=== PATIENT | female | born 2000 | race Caucasian/White ===

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

== ENCOUNTER 2018-04-29 14:44 | Emergency (ER) | payer OTHER ==
[2018-04-29 14:55] VITALS: BP 118/80; PULSE 86; RESP 16; TEMP 97.7
[2018-04-29 15:24] LABS: Appearance,Urine Cloudy (Clear); Bacteria,Urine Many /hpf; Bilirubin,Urine Negative (Negative); Blood,Urine Negative (Negative); Color,Urine Light Yellow; Glucose,Urine (UA) Trace (Negative); Ketones,Urine Negative (Negative); Leukocyte Esterase,Urine Small (Negative); Mucus,Urine Rare /hpf; Nitrite,Urine Negative (Negative); PH, Urine 6.5 (5.0-8.0); Protein,Urine Negative (Negative); RBC,Urine 3 /hpf (0-5); Specific Gravity,Urine 1.006 (1.001-1.035); Squamous Epithelial Cell,Urine 2 /hpf (0-4); Urobilinogen,Urine <2.0 mg/dL (<2.0)
--- NOTE | 2018-04-29 15:45 | ED ---
Female Urogenital HPI - General Chief complaint: Urogenital Stated complaint: UTI Time Seen by Provider: 04/29/18 15:09 Source: patient, RN notes reviewed, old records reviewed Mode of arrival: ambulatory Limitations: no limitations - History of Present Illness Initial comments: Pt is a 18 year old female currently 18 weeks and concern for UTI. She denies vaginal bleeding abdominal pain or discharge. She reports that she has had a foul urine odor. She sees Dr. Rashid. - Related Data Previous Rx's Medication Instructions Recorded Amoxicillin/Potassium Clav 1 tab PO Q12HR #20 tab 08/09/17 [Augmentin 875-125 Tablet] Amoxicillin 875 mg PO Q8HR #21 tablet 10/17/17 Fluconazole [Diflucan] 150 mg PO DAILY #2 tab 10/17/17 Cephalexin [Keflex] 500 mg PO BID #14 cap 04/29/18 Fluconazole [Diflucan] 150 mg PO ONCE #2 tab 04/29/18 Allergies Allergy/AdvReac Type Severity Reaction Status Date / Time No Known Allergies Allergy Verified 04/29/18 14:55 Review of Systems ROS Statement: Those systems with pertinent positive or pertinent negative responses have been documented in the HPI. ROS Other: All systems not noted in ROS Statement are negative. Past Medical History Past Medical History: No Reported History History of Any Multi-Drug Resistant Organisms: None Reported Past Surgical History: No Surgical Hx Reported Past Psychological History: No Psychological Hx Reported Smoking Status: Current every day smoker Past Alcohol Use History: Occasional Past Drug Use History: Marijuana General Exam - General Exam Comments Initial Comments: Well appearing 18 year old female, no distress. Limitations: no limitations General appearance: alert, in no apparent distress Head exam: Present: atraumatic, normocephalic, normal inspection Eye exam: Present: normal appearance, PERRL, EOMI. Absent: scleral icterus, conjunctival injection, periorbital swelling ENT exam: Present: normal exam, mucous membranes moist Neck exam: Present: normal inspection. Absent: tenderness, meningismus, lymphadenopathy Respiratory exam: Present: normal lung sounds bilaterally. Absent: respiratory distress, wheezes, rales, rhonchi, stridor Cardiovascular Exam: Present: regular rate, normal rhythm, normal heart sounds. Absent: systolic murmur, diastolic murmur, rubs, gallop, clicks GI/Abdominal exam: Present: soft, normal bowel sounds. Absent: distended, tenderness, guarding, rebound, rigid Extremities exam: Present: normal inspection, full ROM, normal capillary refill. Absent: tenderness, pedal edema, joint swelling, calf tenderness Back exam: Present: normal inspection Neurological exam: Present: alert, oriented X3, CN II-XII intact Psychiatric exam: Present: normal affect, normal mood Course Vital Signs 04/29/18 14:52 Temperature 97.7 F Pulse Rate 86 Respiratory 16 Rate Blood Pressure 118/80 O2 Sat by Pulse 99 Oximetry Medical Decision Making - Medical Decision Making 18 year old 18 week pregnatn female is concerned for UTI. No abomdinal pain, vaginal bleeding or discharge. She appears well. UA shows bacteria, will treat with keflex and she requests Rx for diflucan. Discussed close PCP follow up. Culture pending. - Lab Data Lab Results 04/29/18 Range/Units 15:00 Urine Color Light Yellow Urine Appearance Cloudy H (Clear) Urine pH 6.5 (5.0-8.0) Ur Specific [place] 1.006 (1.001-1.035) Urine Protein Negative (Negative) Urine Glucose (UA) Trace H (Negative) Urine Ketones Negative (Negative) Urine Blood Negative (Negative) Urine Nitrite Negative (Negative) Urine Bilirubin Negative (Negative) Urine Urobilinogen <2.0 (<2.0) mg/dL Ur Leukocyte Esterase Small H (Negative) Urine RBC 3 (0-5) /hpf Urine WBC 8 H (0-5) /hpf Ur Squamous Epith Cells 2 (0-4) /hpf Urine Bacteria Many H (None) /hpf Urine Mucus Rare H (None) /hpf Disposition Clinical Impression: UTI in Disposition: HOME SELF-CARE Condition: Good Instructions (If sedation given, give patient instructions): Urinary Tract Infection in Women (ED) Additional Instructions: Patient advised to follow up with OBGYN. Return to ED if any alarming signs or symptoms occur. Prescriptions: Cephalexin [Keflex] 500 mg PO BID #14 cap Fluconazole [Diflucan] 150 mg PO ONCE #2 tab Is patient prescribed a controlled substance at d/c from ED?: No Referrals: None,Stated [Primary Care Provider] - 1-2 days Time of Disposition: 15:42
== END 2018-04-29 15:50 | disposition home or self-care (01) ==
LOC: EC 14:44
DX: O23.42 Unspecified infection of urinary tract in pregnancy, second trimester (principal); O99.332 Smoking (tobacco) complicating pregnancy, second trimester; F17.200 Nicotine dependence, unspecified, uncomplicated; Z3A.18 18 weeks gestation of pregnancy
CPT/HCPCS: 81001; 87086; 99284

== ENCOUNTER 2018-08-03 15:08 | Outpatient (CLI) | payer OTHER ==
[2018-08-03] MEDS ORDERED: ACETAMINOPHEN TAB 325 MG TAB PO STA (15:57)
[2018-08-03 16:12] VITALS: BP 122/59; PULSE 90; RESP 18; TEMP 98.5
[2018-08-03 16:36] LABS: Appearance,Urine Clear (Clear); Bacteria,Urine Rare /hpf; Bilirubin,Urine Negative (Negative); Blood,Urine Negative (Negative); Color,Urine Yellow; Glucose,Urine (UA) Negative (Negative); Ketones,Urine Negative (Negative); Leukocyte Esterase,Urine Trace (Negative); Mucus,Urine Few /hpf; Nitrite,Urine Negative (Negative); Protein,Urine Trace (Negative); RBC,Urine 1 /hpf (0-5); Specific Gravity,Urine 1.024 (1.001-1.035); Squamous Epithelial Cell,Urine 1 /hpf (0-4); Urobilinogen,Urine <2.0 mg/dL (<2.0); WBC,Urine 2 /hpf (0-5)
--- NOTE | 2018-08-04 10:18 | P.MSEPDOC ---
Presenting Problems - Arrival Data Date of Arrival on Unit: 08/03/18 Time of Arrival on Unit: 15:20 Mode of Transport: Ambulatory - Complaint OB-Reason for Admission/Chief Complaint: Other Comment: ligament pains Medical History - Information : 1 Para: 0 Term: 0 : 0 Abortions: Spontaneous or Elective: 0 Number of Living Children: 0 - Gestational Age Gestational Age by RONALD (wks/days): 31 Weeks and 5 Days Review of Systems - Review of Systems Constitutional: No problems Breast: No problems ENT: No problems Cardiovascular: No problems Respiratory: No problems Gastrointestinal: No problems Genitourinary: No problems Musculoskeletal: No problems Neurological: No problems Skin: No problems Vital Signs - Temperature Temperature: 98.5 F Temperature Source: Oral - Pulse Right Brachial Pulse Rate: 90 Pulse Assessment Method: Auscultation - Respirations Respiratory Rate: 18 Oxygen Delivery Method: Room Air O2 Sat by Pulse Oximetry: 98 - Blood Pressure Right Arm Blood Pressure: 122/59 Blood Pressure Mean: 80 Blood Pressure Source: Automatic Cuff Medical Screen Scoring (Pre) - Cervical Exam Dilation: Exam Deferred Effacement: Exam Deferred Membranes: Intact - Uterine Contractions Frequency: N/A Duration: N/A Intensity: N/A - Maternal Vital Signs Maternal Temperature: N/A Maternal Blood Pressure: N/A Signs of Preeclampsia: N/A Maternal Respirations: N/A - Pain Assessment Pain Scale Used: Numeric (1 - 10) Pain Intensity: 0 Pain Behavior: None Exhibited - Maternal Trauma Maternal Trauma: N/A - Assessment Baseline FHR: 140 Heart Rate - NICHD Category: Category I (Normal) = 0 NST: Reactive Position: N/A Station: N/A - Total Score Total Score (Pre): 0 - Level of Risk Level of Risk: Low (0-5) Physician Notification (Pre) - Physician Notified Spoke With: chantale Stein Order Received: Yes - Notification Comment Comment: discharge home. to keep next cayden appt as scheduled. Physician Notification (Post) - Physician Notified Physician Notified Date: 08/03/18 Physician Notified Time: 17:20 Spoke With: chantale Stein Order Received: Yes - Notification Comment Comment: discharge home. maddie wnl. keep next sched appt with dr rodarte. Disposition - Disposition OB Disposition: Discharge to home Discharge Date: 08/03/18 Discharge Time: 17:28 I agree with the RN Medical Screening Exam: Yes Risk & Benefit of care provided described in d/c instruction: Yes Diagnosis: RELATED CONDITIONS, UNSPECIFIED, THIRD TRIMESTER
== END 2018-08-03 17:30 | disposition home or self-care (01) ==
LOC: FBPOP 15:08
PROVIDERS: ATTEND Obstetrics & Gynecology
DX: O26.93 Pregnancy related conditions, unspecified, third trimester (principal); Z3A.31 31 weeks gestation of pregnancy
CPT/HCPCS: 59025; 81001; G0463; 99213

== ENCOUNTER 2018-08-21 15:59 | Outpatient (CLI) | payer OTHER ==
[2018-08-21 18:06] VITALS: BP 111/65; PULSE 88; RESP 18; TEMP 98
--- NOTE | 2018-08-30 09:46 | P.MSEPDOC ---
Presenting Problems - Arrival Data Date of Arrival on Unit: 08/21/18 Time of Arrival on Unit: 16:20 Mode of Transport: Ambulatory - Complaint OB-Reason for Admission/Chief Complaint: Rule Out SROM Comment: C/O WATERY DISCHARGE ONSET 1400 TODAY Medical History - Information : 1 Para: 0 Number of Living Children: 0 - Gestational Age Gestational Age by RONALD (wks/days): 34 Weeks and 2 Days Review of Systems - Review of Systems Constitutional: No problems Breast: No problems ENT: No problems Cardiovascular: No problems Respiratory: No problems Gastrointestinal: No problems Genitourinary: No problems Musculoskeletal: No problems Neurological: No problems Skin: No problems Vital Signs - Temperature Temperature: 98.0 F Temperature Source: Oral - Pulse Right Brachial Pulse Rate: 88 Pulse Assessment Method: Auscultation - Respirations Respiratory Rate: 18 Oxygen Delivery Method: Room Air O2 Sat by Pulse Oximetry: 99 - Blood Pressure Right Arm Blood Pressure: 111/65 Blood Pressure Mean: 80 Blood Pressure Source: Automatic Cuff Medical Screen Scoring (Pre) - Cervical Exam Dilation: 0 cm = 0 Membranes: Intact - Uterine Contractions Frequency: N/A Duration: N/A Intensity: N/A - Maternal Vital Signs Maternal Temperature: N/A Signs of Preeclampsia: N/A Maternal Respirations: N/A - Maternal Trauma Maternal Trauma: N/A - Assessment - Baby A Baseline FHR: 135 Heart Rate - NICHD Category: Category I (Normal) = 0 NST: Reactive Position: N/A Station: N/A - Total Score - Baby A Total Score - Baby A: 0 - Total Score - Baby B Total Score - Baby B: 0 - Total Score - Baby C Total Score - Baby C: 0 - Level of Risk - Baby A Level of Risk - Baby A: Low (0-5) - Level of Risk - Baby B Level of Risk - Baby B: Low (0-5) - Level of Risk - Baby C Level of Risk - Baby C: Low (0-5) Physician Notification (Pre) - Physician Notified Spoke With: RORY New Order Received: Yes - Notification Comment Comment: DISCHARGED HOME. TO KEEP NET SCHED APPT WITH DR BENDER Disposition - Disposition OB Disposition: Discharge to home Discharge Date: 08/21/18 Discharge Time: 16:50 I agree with the RN Medical Screening Exam: Yes Risk & Benefit of care provided described in d/c instruction: Yes Diagnosis: FALSE LABOR BEFORE 37 COMPLETED WEEKS OF GEST, THIRD TRI
== END 2018-08-21 16:50 | disposition home or self-care (01) ==
LOC: FBPOP 15:59
PROVIDERS: ATTEND Obstetrics & Gynecology
DX: O47.03 False labor before 37 completed weeks of gestation, third trimester (principal); Z3A.34 34 weeks gestation of pregnancy
CPT/HCPCS: 59025; G0463; 99213

== ENCOUNTER 2018-09-08 21:00 | Outpatient (CLI) | payer OTHER ==
[2018-09-08 22:16] VITALS: BP 113/57; PULSE 88; RESP 18; TEMP 97.5
--- NOTE | 2018-09-09 09:26 | P.MSEPDOC ---
Presenting Problems - Arrival Data Date of Arrival on Unit: 09/08/18 Time of Arrival on Unit: 21:00 Mode of Transport: Ambulatory - Complaint OB-Reason for Admission/Chief Complaint: Pain Comment: Constant upper abd pain spreading down to lower abd. Medical History - Information : 1 Para: 0 Term: 0 : 0 Abortions: Spontaneous or Elective: 0 Number of Living Children: 0 - Gestational Age Gestational Age by RONALD (wks/days): 36 Weeks and 6 Days - History Complications: No Care Review of Systems - Review of Systems Constitutional: No problems Breast: No problems ENT: No problems Cardiovascular: No problems Respiratory: No problems Gastrointestinal: No problems Genitourinary: No problems Musculoskeletal: No problems Neurological: No problems Skin: No problems Vital Signs - Temperature Temperature: 97.5 F Temperature Source: Oral - Pulse Right Pulse Rate: 88 Pulse Assessment Method: Pulse Oximetry - Respirations Respiratory Rate: 18 Oxygen Delivery Method: Room Air O2 Sat by Pulse Oximetry: 98 - Blood Pressure Right Arm Blood Pressure: 113/57 Blood Pressure Mean: 75 Blood Pressure Source: Automatic Cuff Medical Screen Scoring (Pre) - Cervical Exam Dilation: 1-3 cm = 1 Effacement: Exam Deferred Membranes: Intact - Uterine Contractions Frequency: N/A Duration: N/A Intensity: N/A - Maternal Vital Signs Maternal Temperature: N/A Maternal Blood Pressure: N/A Signs of Preeclampsia: N/A Maternal Respirations: N/A - Maternal Trauma Maternal Trauma: N/A - Assessment - Baby A Baseline FHR: 130 Heart Rate - NICHD Category: Category I (Normal) = 0 NST: Reactive Position: N/A Station: N/A - Total Score - Baby A Total Score - Baby A: 1 - Total Score - Baby B Total Score - Baby B: 1 - Total Score - Baby C Total Score - Baby C: 1 - Level of Risk - Baby A Level of Risk - Baby A: Low (0-5) - Level of Risk - Baby B Level of Risk - Baby B: Low (0-5) - Level of Risk - Baby C Level of Risk - Baby C: Low (0-5) Physician Notification (Pre) - Physician Notified Physician Notified Date: 09/08/18 Physician Notified Time: 21:42 Physician/Practitioner Notifed:: Dr. Sandhu Spoke With: Dr. Sandhu New Order Received: Yes (discharge with follow up instructions.) Medical Screen Scoring (Post) - Cervical Exam Dilation: 1-3 cm = 1 Effacement: Exam Deferred Membranes: Intact - Uterine Contractions Frequency: N/A Duration: N/A Intensity: N/A - Maternal Vital Signs Maternal Temperature: N/A Maternal Blood Pressure: N/A Signs of Preeclampsia: N/A Maternal Respirations: N/A - Pain Assessment Pain Location and Character: Upper, Lower, Abdomen Pain Scale Used: Numeric (1 - 10) Pain Intensity: 1 Pain Management Goal: 0 Pain Description: *Acute, Cramping Pain Frequency: Occasional Pain Duration Units: Minutes Pain Behavior: Vocalization Pain Aggravating Factors: Activity, Position Non-Pharmacological Interventions: Darkened Room, Distraction, Environmental Control, Inactivity, Position/Reposition, Relaxation Technique - Maternal Trauma Maternal Trauma: N/A - Assessment - Baby A Heart Rate: 125 Heart Rate - NICHD Category: Category I (Normal) = 0 NST: Reactive Position: N/A Station: N/A - Total Score Total Score - Baby A: 1 Total Score - Baby B: 1 Total Score - Baby C: 1 - Post Treatment Level of Risk Post Treatment Level of Risk - Baby A: Low (0-5) Post Treatment Level of Risk - Baby B: Low (0-5) Post Treatment Level of Risk - Baby C: Low (0-5) Physician Notification (Post) - Physician Notified Physician Notified Date: 09/08/18 Physician Notified Time: 21:42 Physician/Practitioner Notified:: Dr. Sandhu Spoke With: Dr. Sandhu New Order Received: Yes (discharge with follow up instructions) Disposition - Disposition OB Disposition: Discharge to home Discharge Date: 09/08/18 Discharge Time: 21:42 I agree with the RN Medical Screening Exam: Yes Risk & Benefit of care provided described in d/c instruction: Yes Diagnosis: FALSE LABOR BEFORE 37 COMPLETED WEEKS OF GEST, THIRD TRI
== END 2018-09-08 21:48 | disposition home or self-care (01) ==
LOC: FBPOP 21:00
PROVIDERS: ATTEND Obstetrics & Gynecology
DX: O47.03 False labor before 37 completed weeks of gestation, third trimester (principal); Z3A.36 36 weeks gestation of pregnancy
CPT/HCPCS: 59025; G0463; 99213

== ENCOUNTER 2018-09-17 13:30 | Outpatient (CLI) | payer OTHER ==
[2018-09-17 15:42] VITALS: BP 133/59; PULSE 88; RESP 16; TEMP 96.6
--- NOTE | 2018-09-19 08:12 | P.MSEPDOC ---
Presenting Problems - Arrival Data Date of Arrival on Unit: 09/17/18 Time of Arrival on Unit: 13:30 Mode of Transport: Ambulatory - Complaint OB-Reason for Admission/Chief Complaint: Observation/Evaluation Comment: pt complains of SOB with activity Medical History - Information : 1 Para: 0 Term: 0 : 0 Abortions: Spontaneous or Elective: 0 Number of Living Children: 0 - Gestational Age Gestational Age by RONALD (wks/days): 39 Weeks and 3 Days Review of Systems - Review of Systems Constitutional: No problems Breast: No problems ENT: No problems Cardiovascular: No problems Respiratory: No problems Gastrointestinal: No problems Genitourinary: No problems Musculoskeletal: No problems Neurological: No problems Skin: No problems Comment: pt no longer short of breath when resting Vital Signs - Temperature Temperature: 96.6 F Temperature Source: Temporal Artery Scan - Pulse Right Brachial Pulse Rate: 88 Pulse Assessment Method: Automatic Cuff - Respirations Respiratory Rate: 16 Oxygen Delivery Method: Room Air O2 Sat by Pulse Oximetry: 99 - Blood Pressure Right Arm Blood Pressure: 133/59 Blood Pressure Mean: 83 Blood Pressure Source: Automatic Cuff Medical Screen Scoring (Pre) - Cervical Exam Dilation: Exam Deferred Effacement: Exam Deferred Membranes: Intact - Uterine Contractions Frequency: N/A Duration: N/A Intensity: N/A - Maternal Vital Signs Maternal Temperature: N/A Maternal Blood Pressure: N/A Signs of Preeclampsia: N/A Maternal Respirations: N/A - Maternal Trauma Maternal Trauma: N/A - Assessment - Baby A Baseline FHR: 140 Heart Rate - NICHD Category: Category I (Normal) = 0 NST: Reactive Position: N/A Station: N/A - Total Score - Baby A Total Score - Baby A: 0 - Total Score - Baby B Total Score - Baby B: 0 - Total Score - Baby C Total Score - Baby C: 0 - Level of Risk - Baby A Level of Risk - Baby A: Low (0-5) - Level of Risk - Baby B Level of Risk - Baby B: Low (0-5) - Level of Risk - Baby C Level of Risk - Baby C: Low (0-5) Medical Screen Scoring (Post) - Post Treatment Level of Risk Post Treatment Level of Risk - Baby A: Low (0-5) Physician Notification (Post) - Physician Notified Physician Notified Date: 09/17/18 Physician Notified Time: 14:17 Spoke With: Rachid Stein Order Received: Yes - Notification Comment Comment: no longer short of breath, vitals including pulse ox wnl. d/c with instruction Disposition - Disposition OB Disposition: Discharge to home, Written follow up instructions reviewed Discharge Date: 09/17/18 Discharge Time: 14:25 I agree with the RN Medical Screening Exam: Yes Risk & Benefit of care provided described in d/c instruction: Yes Diagnosis: SHORTNESS OF BREATH
== END 2018-09-17 14:25 | disposition home or self-care (01) ==
LOC: FBPOP 13:30
PROVIDERS: ATTEND Obstetrics & Gynecology
DX: O99.89 Other specified diseases and conditions complicating pregnancy, childbirth and the puerperium (principal); R06.02 Shortness of breath; Z3A.39 39 weeks gestation of pregnancy
CPT/HCPCS: 59025; G0463; 99213

== ENCOUNTER → 2018-09-22 | Outpatient (CLI) | payer OTHER ==
[2018-09-22 12:25] VITALS: BP 109/59; PULSE 83; RESP 16; TEMP 98.2
--- NOTE | 2018-09-25 12:40 | P.MSEPDOC ---
Presenting Problems - Arrival Data Date of Arrival on Unit: 09/22/18 Time of Arrival on Unit: 11:47 Mode of Transport: Ambulatory - Complaint OB-Reason for Admission/Chief Complaint: Decreased Movement Comment: last felt 1000 this morning, moving less than normal Medical History - Information : 1 Para: 0 Term: 0 : 0 Abortions: Spontaneous or Elective: 0 Number of Living Children: 0 - Gestational Age Gestational Age by RONALD (wks/days): 38 Weeks and 6 Days Review of Systems - Review of Systems Constitutional: No problems Breast: No problems ENT: No problems Cardiovascular: No problems Respiratory: No problems Gastrointestinal: No problems Genitourinary: No problems Musculoskeletal: No problems Neurological: No problems Skin: No problems Vital Signs - Temperature Temperature: 98.2 F Temperature Source: Oral - Pulse Right Sitting Brachial Pulse Rate: 83 Pulse Assessment Method: Automatic Cuff - Respirations Respiratory Rate: 16 Oxygen Delivery Method: Room Air - Blood Pressure Right Arm Sitting Blood Pressure: 109/59 Blood Pressure Mean: 75 Blood Pressure Source: Automatic Cuff Medical Screen Scoring (Pre) - Cervical Exam Dilation: Exam Deferred Effacement: Exam Deferred Membranes: Intact - Uterine Contractions Frequency: > 5 minutes apart = 1 Duration: > 40 seconds = 2 Intensity: N/A - Maternal Vital Signs Maternal Temperature: N/A Maternal Blood Pressure: N/A Signs of Preeclampsia: N/A Maternal Respirations: N/A - Maternal Trauma Maternal Trauma: N/A - Assessment - Baby A Baseline FHR: 140 Heart Rate - NICHD Category: Category I (Normal) = 0 NST: Reactive Position: N/A Station: N/A - Total Score - Baby A Total Score - Baby A: 3 - Total Score - Baby B Total Score - Baby B: 3 - Total Score - Baby C Total Score - Baby C: 3 - Level of Risk - Baby A Level of Risk - Baby A: Low (0-5) - Level of Risk - Baby B Level of Risk - Baby B: Low (0-5) - Level of Risk - Baby C Level of Risk - Baby C: Low (0-5) Medical Screen Scoring (Post) - Assessment - Baby A Heart Rate: 140 Heart Rate - NICHD Category: Category I (Normal) = 0 NST: Reactive Position: N/A Station: N/A - Total Score Total Score - Baby A: 0 - Post Treatment Level of Risk Post Treatment Level of Risk - Baby A: Low (0-5) Physician Notification (Post) - Physician Notified Physician Notified Date: 09/22/18 Physician Notified Time: 12:46 Spoke With: Rachid Stein Order Received: Yes - Notification Comment Comment: movement felt, reactive fhts Disposition - Disposition OB Disposition: Discharge to home, Written follow up instructions reviewed Discharge Date: 09/22/18 Discharge Time: 12:55 I agree with the RN Medical Screening Exam: Yes Risk & Benefit of care provided described in d/c instruction: Yes Diagnosis: DECREASED MOVEMENTS, THIRD TRIMESTER, FETUS 1
== END | disposition home or self-care (01) ==
LOC: FBPOP 11:47
PROVIDERS: ATTEND Obstetrics & Gynecology
DX: O36.8131 Decreased fetal movements, third trimester, fetus 1 (principal); Z3A.38 38 weeks gestation of pregnancy
CPT/HCPCS: 59025; G0463; 99213

== ENCOUNTER 2018-09-24 18:24 | Outpatient (CLI) | payer OTHER ==
[2018-09-24 20:05] VITALS: BP 120/57; PULSE 88; RESP 16; TEMP 95.7
--- NOTE | 2018-10-06 10:03 | P.MSEPDOC ---
Presenting Problems - Arrival Data Date of Arrival on Unit: 09/24/18 Time of Arrival on Unit: 18:24 Mode of Transport: Wheelchair - Complaint OB-Reason for Admission/Chief Complaint: Possible Onset of Labor Comment: SHarp abdominal pain since 1729, rates as 6/10 Medical History - Information : 1 Para: 0 Term: 0 : 0 Abortions: Spontaneous or Elective: 0 Number of Living Children: 0 - Gestational Age Gestational Age by RONALD (wks/days): 39 Weeks and 1 Days Review of Systems - Review of Systems Constitutional: No problems Breast: No problems ENT: No problems Cardiovascular: No problems Respiratory: No problems Gastrointestinal: No problems Genitourinary: No problems Musculoskeletal: No problems Neurological: No problems Skin: No problems Vital Signs - Temperature Temperature: 95.7 F Temperature Source: Temporal Artery Scan - Pulse Right Brachial Pulse Rate: 88 Pulse Assessment Method: Automatic Cuff - Respirations Respiratory Rate: 16 Oxygen Delivery Method: Room Air - Blood Pressure Right Arm Blood Pressure: 120/57 Blood Pressure Mean: 78 Blood Pressure Source: Automatic Cuff Medical Screen Scoring (Pre) - Cervical Exam Dilation: 1-3 cm = 1 Effacement: More than 50% = 2 Membranes: Intact - Uterine Contractions Frequency: > or = 36 weeks =2 Duration: > 40 seconds = 2 Intensity: N/A - Maternal Vital Signs Maternal Temperature: N/A Maternal Blood Pressure: N/A Signs of Preeclampsia: N/A Maternal Respirations: N/A - Maternal Trauma Maternal Trauma: N/A - Assessment - Baby A Baseline FHR: 140 Heart Rate - NICHD Category: Category I (Normal) = 0 NST: Reactive Position: N/A Station: N/A - Total Score - Baby A Total Score - Baby A: 7 - Total Score - Baby B Total Score - Baby B: 7 - Total Score - Baby C Total Score - Baby C: 7 - Level of Risk - Baby A Level of Risk - Baby A: Medium (6-9) - Level of Risk - Baby B Level of Risk - Baby B: Medium (6-9) - Level of Risk - Baby C Level of Risk - Baby C: Medium (6-9) Physician Notification (Pre) - Physician Notified Physician Notified Date: 09/24/18 Physician Notified Time: 19:48 Spoke With: Phoebe Stein Order Received: Yes - Notification Comment Comment: D/c home and follow up with Dr. Rashid as planned 09/26 Disposition - Disposition OB Disposition: Discharge to home, Written follow up instructions reviewed Discharge Date: 09/24/18 Discharge Time: 19:51 I agree with the RN Medical Screening Exam: Yes Risk & Benefit of care provided described in d/c instruction: Yes Diagnosis: FALSE LABOR AT OR AFTER 37 COMPLETED WEEKS OF GESTATION
== END 2018-09-24 19:51 | disposition home or self-care (01) ==
LOC: FBPOP 18:24
PROVIDERS: ATTEND Obstetrics & Gynecology
DX: O47.1 False labor at or after 37 completed weeks of gestation (principal); Z3A.39 39 weeks gestation of pregnancy
CPT/HCPCS: 59025; G0463; 99213

== ENCOUNTER 2018-09-25 00:15 | Inpatient (IN) | payer OTHER ==
[2018-09-25] MEDS ORDERED: LIDOCAINE 0.5% (PF) 5 MG/ML (50 ML SDV) SQ PRN (00:34)
[2018-09-25] MEDS ORDERED: OXYTOCIN 10 UNIT/ML 1 ML VIAL IM PRN (00:34)
[2018-09-25] MEDS ORDERED: TERBUTALINE 1 MG/ML VIAL SQ PRN (00:34)
[2018-09-25] MEDS ORDERED: METHYLERGONOVINE 0.2 MG/ML 1 ML AMP IM PRN (00:34)
[2018-09-25] MEDS ORDERED: AMPICILLIN 2,000 MG in SODIUM CHLORIDE 0.9% 100 ML IVPB STA (00:34)
[2018-09-25] MEDS ORDERED: CARBOPROST TROMETHAMINE 250 MCG/ML 1 ML AMP IM PRN (00:34)
[2018-09-25] MEDS ORDERED: BUTORPHANOL 1 MG/ML 1 ML VIAL IV PRN (00:36)
[2018-09-25 00:43] VITALS: BMI 44.1
[2018-09-25] MEDS ORDERED: OXYTOCIN 30 UNITS/500 ML NS 30 UNIT in SALINE 1 500ML.BAG IV SCH (00:45)
[2018-09-25] MEDS ORDERED: LACTATED RINGERS 1,000 ML IV SCH (00:45)
[2018-09-25] MEDS: LACTATED RINGERS 1,000 ML IV SCH ×3 (00:59→17:25)
[2018-09-25 01:05] LABS: Basophils % (A) 0 %; Eosinophils # (A) 0.2 k/uL (0-0.7); Eosinophils % (A) 2 %; HGB 11.6 gm/dL (11.4-16.0); Hypochromasia Slight; Lymphocytes # (A) 1.6 k/uL (1.0-4.8); Lymphocytes % (A) 16 %; MCH 26.7 pg (25.0-35.0); MCHC 33.2 g/dL (31.0-37.0); MCV 80.4 fL (80.0-100.0); Mean Platelet Volume 8.1; Monocytes # (A) 0.6 k/uL (0-1.0); Monocytes % (A) 5 %; Neutrophils # (A) 7.6 k/uL (1.3-7.7); Neutrophils % (A) 75 %; Platelet Count 297 k/uL (150-450); RBC 4.36 m/uL (3.80-5.40); RDW 14.7 % (11.5-15.5); WBC 10.1 k/uL (4.0-11.0)
[2018-09-25] MEDS: AMPICILLIN 1,000 MG in SODIUM CHLORIDE 0.9% 50 ML IVPB SCH ×4 (04:55→17:25)
[2018-09-25] MEDS ORDERED: SODIUM CHLORIDE 0.9% 100 ML BAG ONE (09:15)
[2018-09-25] MEDS ORDERED: fentaNYL (PF) 50 MCG/ML 5 ML AMP ONE (09:15)
[2018-09-25] MEDS ORDERED: ROPIVACAINE 5MG/ML 20ML VIAL ONE (09:15)
[2018-09-25] MEDS ORDERED: ACETAMINOPHEN TAB 325 MG TAB PO PRN (17:36)
[2018-09-25] MEDS ORDERED: HYDROCORTISONE 2.5% RECTAL CREAM 30 GM TUBE RECTAL PRN (17:36)
[2018-09-25] MEDS ORDERED: WITCH HAZEL 1 EACH MED..PAD TOPICAL PRN (17:36)
[2018-09-25] MEDS ORDERED: SIMETHICONE 80 MG CHEWABLE PO PRN (17:36)
[2018-09-25] MEDS ORDERED: ZOLPIDEM 5 MG TAB PO PRN (17:36)
[2018-09-25] MEDS ORDERED: BENZOCAINE/MENTHOL SPRAY 1 GM/SPRAY AEROSOL TOPICAL PRN (17:36)
[2018-09-25] MEDS ORDERED: diphenhydrAMINE 25 MG CAP PO PRN (17:36)
[2018-09-25] MEDS ORDERED: diphenhydrAMINE 50 MG CAP PO PRN (17:36)
[2018-09-25] MEDS ORDERED: LANOLIN CREAM 5 GM TUBE TOPICAL PRN (17:36)
[2018-09-25] MEDS ORDERED: diphenhydrAMINE 50 MG/ML 1 ML VIAL IVP PRN ×2 (17:36)
[2018-09-25] MEDS ORDERED: OXYTOCIN 20 UNITS/1000 ML NS 1,000 ML IV SCH (17:45)
[2018-09-25] MEDS: IBUPROFEN 600 MG TAB PO PRN (17:53)
[2018-09-25] MEDS: SENNOSIDES-DOCUSATE SODIUM 1 EACH TAB PO SCH (23:41)
[2018-09-26] MEDS: IBUPROFEN 600 MG TAB PO PRN ×3 (01:43→22:40)
[2018-09-26] MEDS: SENNOSIDES-DOCUSATE SODIUM 1 EACH TAB PO SCH ×2 (08:13→21:38)
[2018-09-27 01:04] VITALS: RESP 16
[2018-09-27] MEDS: IBUPROFEN 600 MG TAB PO PRN ×3 (04:21→15:38)
[2018-09-27] MEDS: SENNOSIDES-DOCUSATE SODIUM 1 EACH TAB PO SCH (08:14)
--- NOTE | 2018-09-27 09:35 | P.HPOB ---
History of Present Illness H&P Date: 09/25/18 Chief Complaint: Spontaneous rupture membranes 18-year-old presents at 39 weeks and 2 days with spontaneous rupture of membranes. When she presented she was about 2 cm dilated, 70% effaced, -2 station. She is marissa irregularly and heart tones 130s with mo derate variability and accelerations. Review of Systems All systems: negative Constitutional: Denies chills, Denies fever Eyes: denies blurred vision, denies pain Ears, nose, mouth and throat: Denies headache, Denies sore throat Cardiovascular: Denies chest pain, Denies shortness of breath Respiratory: Denies cough Gastrointestinal: Denies abdominal pain, Denies diarrhea, Denies nausea, Denies vomiting Genitourinary: Denies dysuria, Denies hematuria Musculoskeletal: Denies myalgias Integumentary: Denies pruritus, Denies rash Neurological: Denies numbness, Denies weakness Psychiatric: Denies anxiety, Denies depression Endocrine: Denies fatigue, Denies weight change Past Medical History Past Medical History: No Reported History Additional Past Medical History / Comment(s): Obstetric history: This is her first . She's had care with me since first trimester. Blood type is B+, antibodies negative, rubella immune, hep is B-, GBS positive. History of Any Multi-Drug Resistant Organisms: None Reported Past Surgical History: No Surgical Hx Reported Past Anesthesia/Blood Transfusion Reactions: No Reported Reaction Past Psychological History: No Psychological Hx Reported Smoking Status: Former smoker Past Alcohol Use History: Occasional Past Drug Use History: Marijuana Additional Drug Use History / Comment(s): quit with - Past Family History Mother Family Medical History: No Reported History Medications and Allergies Home Medications Medication Instructions Recorded Confirmed Type Pnv,Calcium 72/Iron/Folic Acid 1 each PO DAILY 08/03/18 09/24/18 History [ Plus Tablet] Ibuprofen [Motrin] 600 mg PO Q6HR PRN #30 tab 09/27/18 Rx Allergies Allergy/AdvReac Type Severity Reaction Status Date / Time No Known Allergies Allergy Verified 09/24/18 18:35 Exam Osteopathic Statement: *. No significant issues noted on an osteopathic structural exam other than those noted in the History and Physical/Consult. Vital Signs Temp Pulse Resp BP 09/27/18 08:00 97.9 F 89 16 106/60 09/27/18 00:00 98.3 F 68 16 118/68 09/26/18 16:00 98.3 F 80 14 119/69 Intake and Output 09/26/18 09/27/18 09/27/18 22:59 06:59 14:59 Other: # Voids 2 2 2 Heart: Regular rate and rhythm Lungs: Clear to auscultation bilaterally Abdomen: Soft, nontender Extremities: Negative Homans sign Results Result Diagrams: 09/25/18 00:54 Assessment and Plan (1) Spontaneous rupture of membranes Current Visit: Yes Status: Acute Code(s): SPT7975 - SNOMED Code(s): 139005023 Plan: 1. Admitted to [facility] by Dr. Sandhu 2. Ampicillin for GBS prophylaxis. 3. Pitocin augmentation if necessary 4. Anticipate normal vaginal delivery
--- NOTE | 2018-09-27 09:37 | P.PROBDLV ---
Vaginal Delivery Note - . Vaginal Delivery Note: 18-year-old presented at 39 weeks and 2 days with spontaneous rupture of membranes. She ruptured on 09/24/2018 at 2345. She presented on 09/25 about 2 cm dilated 70% effaced and -2 station. She's marissa irregularly. heart tones 130s with moderate variability and accelerations. Ampicillin was started for GBS prophylaxis. Around 6 AM Pitocin augmentation was also started. When she was uncomfortable she did get an epidural. Her cervix was completely dilated at 1517. She pushed, delivered a viable male infant over intact perineum under epidural anesthesia at 1657. Head delivered OA, nuchal cord 1 easily reduced, anterior shoulder delivered gentle downward guidance followed by posterior shoulder and rest of body. Nose and mouth bulb suctioned, cord clamped and cut, placed mother's abdomen. Apgars 3 at 1 minute, 6 at 5 minutes, 8 at 10 minutes. Weight 7 lbs. 6 oz. Placenta delivered spontaneously, intact with three-vessel cord at 1658. Vagina, cervix, and perineum were inspected. Second-degree midline laceration was repaired with 3-0 Vicryl. Estimated blood loss 200 mL.
[2018-09-27 16:37] VITALS: BP 102/60; PULSE 75; TEMP 98.1
== END 2018-09-27 18:45 | disposition home or self-care (01) | DRG 807 ==
LOC: FBPOP 00:15 → 4FBP 00:29
PROVIDERS: ADMIT Obstetrics & Gynecology; ATTEND Obstetrics & Gynecology
PROC: 10E0XZZ Delivery of Products of Conception, External Approach (ICD-10-PCS; principal; 2018-09-25)
PROC: 0KQM0ZZ Repair Perineum Muscle, Open Approach (ICD-10-PCS; 2018-09-25)
PROC: 00HU33Z Insertion of Infusion Device into Spinal Canal, Percutaneous Approach (ICD-10-PCS; 2018-09-25)
PROC: 3E0R3BZ Introduction of Anesthetic Agent into Spinal Canal, Percutaneous Approach (ICD-10-PCS; 2018-09-25)
DX: O99.824 Streptococcus B carrier state complicating childbirth (principal); Z37.0 Single live birth; O69.81X0 Labor and delivery complicated by cord around neck, without compression, not applicable or unspecified; O70.1 Second degree perineal laceration during delivery; Z3A.39 39 weeks gestation of pregnancy; Z87.891 Personal history of nicotine dependence; Z79.899 Other long term (current) drug therapy
CPT/HCPCS: 59025; 84112; 85025; 86850; 86900; 86901; 88307; 99213